=== PATIENT | female | born 1995 | race Caucasian/White ===

== ENCOUNTER 2017-01-04 18:48 | Emergency (ER) | payer OTHER, BC ==
[2017-01-04 18:58] VITALS: RESP 20; TEMP 98.4
[2017-01-04] MEDS ORDERED: NORMAL SALINE 10 ML SYRINGE FLUSH IVP PRN (19:05)
[2017-01-04] MEDS ORDERED: Sodium Chloride 0.9% 1,000 ML PRIMARY IV ONE (19:05)
[2017-01-04] MEDS ORDERED: ONDANSETRON 4 MG/2 ML VIAL IVP ONE (19:05)
[2017-01-04 19:35] LABS: BASOPHILS # (AUTO) 0.03 10*3/UL; BASOPHILS % (AUTO) 0.4 % (0-1); HEMOGLOBIN 13.5 g/dL (12.0-16.0); IMM GRAN % (AUTO) 0.1 % (0-5); IMM GRAN# (AUTO) 0.01 10*3/UL; LYMPHOCYTES # (AUTO) 1.06 10*3/uL
[2017-01-04 19:40] LABS: ASPARTATE AMINO TRANSFERASE 26 IU/L (8-39); BILIRUBIN,TOTAL 0.5 mg/dL (0.3-1.2); BLOOD UREA NITROGEN 13 mg/dL (7-22); BUN/CREATININE RATIO 18.57 (6-20); CALCIUM 8.8 mg/dL (8.7-10.7); CHLORIDE 104 meq/L (98-112); CREATININE 0.7 mg/dL (0.50-1.20); EST GLOMERULAR FILTRATION > 60 (>60 ml/min/1.73m(2)); GLUCOSE 72 mg/dL (78-110); POTASSIUM 3.4 meq/L (3.8-5.2); SODIUM 138 meq/L (135-145); TOTAL PROTEIN 6.8 g/dL (6.1-8.0)
[2017-01-04 19:41] LABS: BILIRUBIN,URINE NEGATIVE (NEG); CLARITY,URINE CLEAR (CLEAR); GLUCOSE, URINE (UA) NEGATIVE (NEG); LEUKOCYTE ESTERASE ,URINE NEGATIVE (NEG); LYMPHOCYTES % (AUTO) 15.2 % (10-50); MEAN CORPUSCULAR HEMOGLOBIN 29.3 PG (27-31); MEAN CORPUSCULAR HGB CONC 34.6 g/dL (33-37); MEAN PLATELET VOLUME 10.3 FL (7.4-12.2); MONOCYTES # (AUTO) 0.64 10*3/UL (0.3-0.8); MONOCYTES % (AUTO) 9.2 % (5-15); NEUTROPHILS # (AUTO) 5.15 10*3/UL; NEUTROPHILS % (AUTO) 74.1 % (50-80); NITRATE,URINE NEGATIVE (NEG); OCCULT BLOOD,URINE NEGATIVE (NEG); PH,URINE 5.5 (5.0-8.5); PLATELET MORPHOLOGY COMMENT NORMAL MORPHOLOGY (NORM); PROTEIN,URINE NEGATIVE (NEG); RDW COEFFICIENT OF VARIATION 13.4 % (11.5-14.5); WHITE BLOOD COUNT 6.96 10^3/uL (4.8-10.8)
[2017-01-04 19:45] LABS: URINE SAMPLE TYPE VOIDED SPECIMEN
[2017-01-04] MEDS ORDERED: Ondansetron ODT Tab 4 MG TAB PO SCH (20:30)
[2017-01-04] MEDS ORDERED: Ondansetron ODT Tab 4 MG TAB PO ONE (20:33)
--- NOTE | 2017-01-05 06:23 | PDOC ---
Nausea/Vomiting/Diarrhea HPI - General Chief Complaint: General Medical Stated Complaint: Nausea, intermittment migraines, 6 weeks Date Seen by Provider: 01/04/17 Time Seen by Provider: 18:55 Source: POSITIVE: Patient Exam Limitations: POSITIVE: No limitations Nurse's Notes Reviewed & Considered: Yes - History of Present Illness Initial Comments: The patient is a 21-year-old female. She states she is 6 weeks with her last menstrual cycle on 11/22/2016. She states that for the past 4 weeks she's had nausea. Occasional vomiting. No melena, hematochezia, hematemesis, dysuria, hematuria, fevers. Some mild upper abdominal cramping on occasion. She is 2 para 1 aborta 0. She states that she had preeclampsia with her first . No vaginal bleeding or discharge. Body Location Affected: REPORTS: Abdomen Timing: REPORTS: Intermittent Duration: >1 week (4 weeks) Severity: Moderate Quality: REPORTS: Cramping (Occasional mild upper abdominal cramping) Abdominal Pain Onset Location: REPORTS: Other (No real abdominal pain). DENIES : RUQ, LUQ, RLQ, LLQ, Epigastric, Periumbilical, Suprapubic, Generalized abdomen , Flank Abdominal Pain Radiation: DENIES: No radiation, RUQ, LUQ, RLQ, LLQ, Epigastric, Periumbilical, Flank, Groin, Scapula, Shoulder, Chest, Back, Other Context: DENIES: None, Activity, Bending, Coughing, Fall, Lifting, Near Fall, Rest, Sitting, Sleep, Standing, Turning, Emotional stress, Camping, Bad Food, Out of Country Travel, Other, Recent Surgery, Recent Trauma Modifying Factors: improves with: Vomiting Associated Symptoms: REPORTS: Vomiting, Mild Vomiting. DENIES: Frequent Vomiting, Bloody Emesis, Blood-Streaked Emesis, Bilious Emesis, Feculent Emesis , Diarrhea, Mild Diarrhea, Copious Diarrhea, Mucous Diarrhea, Bloody Diarrhea, Blood-Streaked Diarrhea, Watery Diarrhea, Abdominal Pain, Cramping, Aching, Burning, Diffuse Pain, Epigastric Pain, RUQ Pain, RLQ Pain, LUQ Pain, LLQ Pain, Suprapubic Pain, Periumbilical Pain, Other Similar Symptoms Previously: No Recent Care Received: REPORTS: Denies Any Prior Injuries Related to Current Complaint?: No - Patient Home Medications Home Medications: Home Medications Levonorgestrel [Mirena] 1 each IY ASDIR #1 unit 09/05/16 Norgestimate-Ethinyl Estradiol [Sprintec 28 Day Tablet] 1 tab PO DAILY #30 tab 10/10/16 Ondansetron Odt [Zofran ODT] 4 mg SL Q6H PRN #20 tablet 01/04/17 - Patient Allergies Allergies/Adverse Reactions: Allergies Allergy/AdvReac Type Severity Reaction Status Date / Time No Known Allergies Allergy Verified 01/04/17 18:50 Past Medical History - heen HEENT History: Other (please comment) Additional HEENT History: TONSILLECTOMY AND ADNOIDECTOMY Cardiovascular History: Denies History Respiratory History: Denies History Gastrointestinal History: Denies History Genitourinary History: Denies History Endocrine History: Denies History Musculoskeletal History: Denies History Prosthesis or Implant: No Neurological History: Denies History Blood Disorders: Denies History Psychiatric History: Denies History History of Sexually Transmitted Diseases: No Female Reproductive History: Denies History LMP: 2015 Obstetrical History: Denies History Cancer History: Denies History In Past Year Been Physically Harmed or Verbally Threatened: No History of MDRO: No History of Other Communicable Diseases: No Tobacco Use: Never Smoker Alcohol Use: None Substance Use Type: None Previous Surgical History: Yes Type / Date of Surgery: TONSILS/ADNOIDS Anesthesia Reactions: No Malignant Hyperthermia: No Significant Family History: Heart disease Past Medical History Reviewed: Reviewed - No Changes ROS - Limitations ROS Limitations: No Limitations Constitution: REPORTS: Denies Symptoms Cardiovascular: REPORTS: Denies Cardiac Symptoms Respiratory: REPORTS: Denies Resp Symptoms Neurological: REPORTS: Denies Neuro Symptoms Gastrointestinal: REPORTS: Nausea, Vomitting Endocrine: REPORTS: Denies Symptoms Musculoskeletal: REPORTS: Denies MS Symptoms Genitourinary: REPORTS: Denies Symptoms Eyes: REPORTS: Denies Symptoms ENT: REPORTS: Denies Symptoms Skin: REPORTS: Denies Skin Symptoms Lympathic: REPORTS: Denies Lympathic Symptoms Immunologic: POSITIVE: Denies Symptoms Psychiatric: POSITIVE: Denies Psych Symptoms Nausea/Vomiting/Diarrhea Exam - General Appearance General Appearance: POSITIVE: Alert, Cooperative, No Acute Distress, No Evidence of Trauma - HEENT HEENT: POSITIVE: Head Inspection Nml, Eyes Inspection Nml, Ears Inspection Nml, Nose Inspection Nml, Oral/Dental Inspect. Nml, Pharynx Inspect. Nml, PERRL, EOMI - Neck Neck: POSITIVE: Supple, Normal Inspection, Non Tender - Respiratory Respiratory: POSITIVE: No Respiratory Distress, Breath Sounds Normal, Chest Non- Tender - Cardiovascular Cardiovascular: POSITIVE: Regular Rate and Rhythm, Heart Sounds Normal, Equal Pulses, Strong Pulses Peripheral Pulses: Radial (R): 2+, Radial (L): 2+ - Chest Chest: POSITIVE: Non Tender - Abdomen Abdomen: Soft: (All Quadrants), Normal Bowel Sounds: (All Quadrants), Denies Tenderness: (All Quadrants), No Splenomegaly: (All Quadrants), No Hepatomegaly: (All Quadrants), No Guarding: (All Quadrants), No Rebound: (All Quadrants), No Palpable Pulse: (All Quadrants), No Palpabale Mass: (All Quadrants), No Distention: (All Quadrants), No Rigidity: (All Quadrants) - Back Back: POSITIVE: Normal Inspection - Skin Skin: POSITIVE: Intact, Normal For Race, Warm, Dry, No Rash - Extremities Extremity: Non-Tender: (All Extremities), Normal ROM: (All Extremities), Normal Inspection: (All Extremities) - Neurological / Psychological Neurological: POSITIVE: Oriented X3, roll up helper Normal As Tested, Motor Normal, Sensation Normal, 5, 6 N/V/D Progress - Results Reviewed by me Lab Results Reviewed: Yes Lab Results:: Laboratory Results 01/04/17 Range/Units 19:26 WBC 6.96 (4.8-10.8) 10^3/uL RBC 4.60 (4.20-5.40) 10^6/uL Hgb 13.5 (12.0-16.0) g/dL Hct 39.0 (37.0-47.0) % MCV 84.8 (81-99) FL MCH 29.3 (27-31) PG MCHC 34.6 (33-37) g/dL RDW Std Deviation 41.2 (39-50) fL RDW Coeff of [place] 13.4 (11.5-14.5) % Plt Count 261 (140-350) 10*3/uL MPV 10.3 (7.4-12.2) FL Immature Gran % (Auto) 0.1 (0-5) % Neut % (Auto) 74.1 (50-80) % Lymph % (Auto) 15.2 (10-50) % [place] % (Auto) 9.2 (5-15) % Eos % (Auto) 1.0 (0-8) % Baso % (Auto) 0.4 (0-1) % Immature Gran # (Auto) 0.01 10*3/UL Neut # (Auto) 5.15 10*3/UL Lymph # (Auto) 1.06 10*3/uL [place] # (Auto) 0.64 (0.3-0.8) 10*3/UL Eos # (Auto) 0.07 10*3/UL Baso # (Auto) 0.03 10*3/UL WBC Morphology Comment Normal morphology (NORM) Plt Morphology Comment Normal morphology (NORM) RBC Morph Comment Normal morphology (NORM) Sodium 138 (135-145) meq/L Potassium 3.4 L (3.8-5.2) meq/L Chloride 104 (98-112) meq/L Carbon Dioxide 23 (23-33) meq/L Anion Gap 11 (5-20) BUN 13 (7-22) mg/dL Creatinine 0.7 (0.50-1.20) mg/dL Estimated GFR > 60 (>60 ml/min/1.73m(2)) BUN/Creatinine Ratio 18.57 (6-20) Glucose 72 L (78-110) mg/dL Calculated Osmolality 284.0 (267-292) mOsm/kg Calcium 8.8 (8.7-10.7) mg/dL Total Bilirubin 0.5 (0.3-1.2) mg/dL AST 26 (8-39) IU/L ALT 34 (9-52) IU/L Alkaline Phosphatase 80 (50-259) IU/L Total Protein 6.8 (6.1-8.0) g/dL Albumin 4.1 (3.7-5.6) g/dL Globulin 2.6 (2.50-4.10) g/dL Albumin/Globulin Ratio 1.50 (1.3-2.0) mg/g HCG, Quant 80280 mIU/ML Ur Collection Type Voided specimen Urine Color Yellow Urine Clarity Clear (CLEAR) Urine pH 5.5 (5.0-8.5) Ur Specific [place] >=1.030 (1.005-1.030) U Specif Grav (Refrac) 1.030 Urine Protein Negative (NEG) mg/dl Urine Glucose (UA) Negative (NEG) mg/dL Urine Ketones Negative (NEG) Urine Occult Blood Negative (NEG) Urine Nitrate Negative (NEG) Urine Bilirubin Negative (NEG) Urine Urobilinogen 1.0 (0.2) EU/dL Ur Leukocyte Esterase Negative (NEG) Ur Culture Indicated? Culture not set Patient Care Time - Estimated PCT Patient Care Time (In Minutes): 25 Vital Signs - VS Reviewed Vital Signs Reviewed: Yes Discharge Clinical Impression: Nausea and vomiting during prior to 22 weeks gestation Discharge Disposition: Discharged to Home Condition: Stable Prescriptions / Orders: Ondansetron Odt [Zofran ODT] 4 mg SL Q6H PRN #20 tablet PRN Reason: Nausea Additional Instructions: Increase fluids. Zofran, one dissolved under tongue every 6 hours as necessary for nausea. Follow-up with your primary care provider and helper driver. Return here anytime if condition worsens. Follow Up With: MADDY HOWE [Primary Care Provider] - (Instructions as above. Follow-up with your primary care provider and helper driver. Return here anytime if condition worsens.)
== END 2017-01-04 20:27 | disposition home or self-care (01) ==
LOC: ER 18:48
DX: O21.0 Mild hyperemesis gravidarum (principal); Z3A.01 Less than 8 weeks gestation of pregnancy
CPT/HCPCS: 80053; 81003; 84702; 85025; 96361; 96374; 99282; 99283; J2405; J7030

== ENCOUNTER → 2017-01-16 | Outpatient (CLI) | payer BC, OTHER ==
[2017-01-16 11:59] LABS: BASOPHILS # (AUTO) 0.03 10*3/UL; BASOPHILS % (AUTO) 0.4 % (0-1); EOSINOPHILS % (AUTO) 0.6 % (0-8); HEMATOCRIT 39.3 % (37.0-47.0); HEMOGLOBIN 13.6 g/dL (12.0-16.0); IMM GRAN % (AUTO) 0.1 % (0-5); IMM GRAN# (AUTO) 0.01 10*3/UL; LYMPHOCYTES % (AUTO) 20.7 % (10-50); MEAN CORPUSCULAR HEMOGLOBIN 29.3 PG (27-31); MEAN CORPUSCULAR HGB CONC 34.6 g/dL (33-37); MEAN PLATELET VOLUME 10.5 FL (7.4-12.2); MONOCYTES # (AUTO) 0.57 10*3/UL (0.3-0.8); MONOCYTES % (AUTO) 7.9 % (5-15); NEUTROPHILS % (AUTO) 70.3 % (50-80); RDW COEFFICIENT OF VARIATION 13.4 % (11.5-14.5); RED BLOOD COUNT 4.64 10^6/uL (4.20-5.40); WHITE BLOOD COUNT 7.25 10^3/uL (4.8-10.8)
[2017-01-16 12:16] LABS: PLATELET MORPHOLOGY COMMENT NORMAL MORPHOLOGY (NORM)
[2017-01-16 12:40] LABS: PRENATAL QUESTION YES (Y)
[2017-01-16 13:29] LABS: HIV ANTIBODY NEGATIVE (N); HIV-1 P24 ANTIGEN NEGATIVE (N)
[2017-01-18 11:15] LABS: HEP B SURFACE AG Negative (Negative); RUBELLA IGG INDEX 0.8 (()); SYPHILIS IGG WITH REFLEX Negative (Negative)
== END ==
LOC: MOB LAB 10:52
PROVIDERS: ATTEND Student in an Organized Health Care Education/Training Program
DX: Z34.91 Encounter for supervision of normal pregnancy, unspecified, first trimester (principal)
CPT/HCPCS: 36415; 80081; 86900; 86901

== ENCOUNTER → 2017-01-19 | Outpatient (CLI) | payer BC, OTHER ==
--- NOTE | 2017-01-19 08:45 | DI ---
OBSTETRICAL ULTRASOUND, 01/19/2017 7:54 AM: Clinical History: Verify dates. Previous Exam: None at this facility for this . LMP: 11/22/2016. There is a single live IUP currently in unstable position. Amnionic fluid content is normal. The plac enta is probably anterior corpus and Grade 0. heart rate is 163 beats/minute and regular. Both ovaries are normal. The yolk sac is visualized. CRL measurement is 17 mm. This measurement correspond s to an EGA value of 8 weeks 2 days. The US EDC is 08/29/2017. EDC by LMP is also 08/29/2017. Readin. Single live fetus with unstable presentation. Amniotic fluid content is normal. The placenta prob ably will be anterior corpus. Grade is 0. 2. The composite EGA is 8 weeks 2 days with an ultrasound EDC of 08/29/2017. This also coincides wit h the EDC based on the patient's LMP of 11/22/2016.
== END ==
LOC: US 07:51
PROVIDERS: ATTEND Student in an Organized Health Care Education/Training Program
DX: Z36 Encounter for antenatal screening of mother (principal); Z34.91 Encounter for supervision of normal pregnancy, unspecified, first trimester
CPT/HCPCS: 76801

== ENCOUNTER → 2017-03-20 | Outpatient (CLI) | payer BC, OTHER | LOC: LAB 10:49 | PROVIDERS: ATTEND Student in an Organized Health Care Education/Training Program | DX: Z36 Encounter for antenatal screening of mother (principal); Z3A.16 16 weeks gestation of pregnancy | CPT/HCPCS: 87491; 87591 ==

== ENCOUNTER → 2017-04-14 | Outpatient (CLI) | payer BC, OTHER ==
--- NOTE | 2017-04-14 11:06 | DI ---
OBSTETRICAL ULTRASOUND, 04/14/2017 9:42 AM: Clinical History: Antepartum screening. Previous Exam: 01/19/2017. ADJUSTED DATE FROM EARLY OBUS: 11/22/2016. There is a single live IUP currently in vertex presentation. Amnionic fluid content is normal. activity is observed as follows: cardiac, extremity, and respiratory. The placenta is anterior corpus and Grade 1. heart rate is 126 beats/minute and regular. There is a 3 vessel cord. The RVOT, L VOT and 4 chamber heart view are normal. The aortic arch and descending aorta are normal. Views of th e spine, face, and kidneys are unremarkable. BPD, HC, AC, and FL measurements are 45 mm, 175 mm , 167 mm, and 33 mm, respectively. These measurements correspond to EGA values of 19 weeks 5 days, 20 weeks 1 day, 21 weeks 6 days and 20 weeks 3 days, respectively. Composite EGA is 20 weeks 4 days The US EDC is 08/28/2017. EDC by adjusted LMP is 08/29/2017. Readin. Single live fetus with unstable presentation and normal amniotic fluid content. Placenta is anter ior corpus and grade 1. 2. The composite EGA is 20 weeks 4 days with an ultrasound EDC of 08/28/2017. EDC by adjusted LMP of 11/22/2016, is 08/29/2017.
== END ==
LOC: US 09:37
PROVIDERS: ATTEND Student in an Organized Health Care Education/Training Program
DX: Z36 Encounter for antenatal screening of mother (principal); Z3A.20 20 weeks gestation of pregnancy
CPT/HCPCS: 76805

== ENCOUNTER → 2017-06-06 | Outpatient (CLI) | payer BC, OTHER ==
[2017-06-06 11:16] LABS: RED BLOOD COUNT 3.97 10^6/uL (4.20-5.40)
[2017-06-06 11:17] LABS: HEMATOCRIT 36.1 % (37.0-47.0); MEAN CORPUSCULAR HEMOGLOBIN 30.2 PG (27-31); MEAN CORPUSCULAR HGB CONC 33.2 g/dL (33-37); MEAN CORPUSCULAR VOLUME 90.9 FL (81-99); MEAN PLATELET VOLUME 10.8 FL (7.4-12.2)
== END ==
LOC: LAB 09:01
PROVIDERS: ATTEND Obstetrics & Gynecology
DX: Z36 Encounter for antenatal screening of mother (principal); Z3A.28 28 weeks gestation of pregnancy
CPT/HCPCS: 36415; 82950; 85027

== ENCOUNTER 2017-07-01 21:30 | Outpatient (CLI) | payer BC, OTHER ==
[~2017-07-01 21:30] MED LIST: NORMAL SALINE 10 ML SYRINGE FLUSH IVP PRN
[2017-07-01 21:36] VITALS: RESP 20; TEMP 97.8
--- NOTE | 2017-07-04 14:49 | PDOC(PROG) ---
Intake - - Reason for Visit/Chief Complaint: Cramping, Other Additional Reason(s) for Visit: bloody mucous Admitted From: Home - Estimated Due Date: 08/29/17 Gestational Age in Weeks and Days: 32 Weeks and 0 Days : 2 Para: 1 Term Births: 1 Births: 0 Number of Abortions (Spont./Elective): 0 Living Children: 1 - Labs Blood Type and Rh: O+ Group B Strep: Unknown Maternal - Vital Signs Last Taken Vital Signs: Vital Signs - Last Taken Temperature 97.8 F 07/01/17 21:15 Pulse Rate 84 07/01/17 21:15 Respiratory Rate 20 07/01/17 21:15 Blood Pressure 121/62 07/01/17 21:15 Pulse Ox 99 07/01/17 21:15 - Vaginal Discharge Vaginal Bleeding Amount: Spotting Results - Bedside Testing Bedside Urine Ketone: Negative Bedside Urine Leukocytes Esterase: Negative Bedside Urine Nitrite: Negative Bedside Urine Occult Blood: Negative Bedside Urine Protein: Trace Bedside Specific [place]: 1.030 Assessment and Plan - Assessment / Plan Additional Assessment/Plan Details: No signs of PTL after hydration. Reassuring maternal and evaluation. Discharge to home in good condition. - Time Time Spent With Patient: Less Than 15 Minutes
--- NOTE | 2017-07-05 20:42 | PDOC(PROG) ---
Intake - - Reason for Visit/Chief Complaint: Cramping, Other Additional Reason(s) for Visit: bloody mucous Admitted From: Home - Estimated Due Date: 08/29/17 Gestational Age in Weeks and Days: 32 Weeks and 1 Days : 2 Para: 1 Term Births: 1 Births: 0 Number of Abortions (Spont./Elective): 0 Living Children: 1 - Labs Blood Type and Rh: O+ Group B Strep: Unknown Maternal - Vital Signs Last Taken Vital Signs: Vital Signs - Last Taken Temperature 97.8 F 07/01/17 21:15 Pulse Rate 84 07/01/17 21:15 Respiratory Rate 20 07/01/17 21:15 Blood Pressure 121/62 07/01/17 21:15 Pulse Ox 99 07/01/17 21:15 - Vaginal Discharge Vaginal Bleeding Amount: Spotting Results - Bedside Testing Bedside Urine Ketone: Negative Bedside Urine Leukocytes Esterase: Negative Bedside Urine Nitrite: Negative Bedside Urine Occult Blood: Negative Bedside Urine Protein: Trace Bedside Specific [place]: 1.030 Assessment and Plan - Assessment / Plan Additional Assessment/Plan Details: No signs of PTL. Reassuring maternal and evaluation. Discharge to home in good condition. - Time Time Spent With Patient: Less Than 15 Minutes
== END 2017-07-01 22:10 | disposition home or self-care (01) ==
LOC: OBOP 21:30
PROVIDERS: ATTEND Student in an Organized Health Care Education/Training Program
DX: O26.893 Other specified pregnancy related conditions, third trimester (principal); R25.2 Cramp and spasm; Z3A.31 31 weeks gestation of pregnancy
CPT/HCPCS: 59025; 81003; 99211

== ENCOUNTER 2017-08-25 05:17 | Inpatient (IN) ==
[2017-08-25] MEDS ORDERED: OXYTOCIN 10 UNIT/1 ML IM PRN (05:20)
[2017-08-25] MEDS ORDERED: NALOXONE 0.4 MG/1 ML VIAL IVP PRN (05:20)
[2017-08-25] MEDS ORDERED: METHYLERGONOVINE MALEATE 0.2 MG/1 ML VIAL IM PRN (05:20)
[2017-08-25] MEDS ORDERED: Carboprost Inj 250 MCG/ML AMP IM PRN (05:20)
[2017-08-25] MEDS ORDERED: Naloxone Inj 0.01 MG in Normal Saline Flush 1 ML IVP PRN (05:20)
[2017-08-25] MEDS ORDERED: Metoclopramide Inj 10 MG/2 ML VIAL IV PRN (05:20)
[2017-08-25] MEDS ORDERED: BUTORPHANOL TARTRATE 2 MG/1 ML VIAL IVP PRN (05:20)
[2017-08-25] MEDS ORDERED: CefOXitin Inj 2 GM in Sodium Chloride 0.9% 100 ML IV PRN (05:20)
[2017-08-25] MEDS ORDERED: Famotidine Inj 20 MG in Normal Saline Flush 10 ML IVP PRN ×4 (05:20)
[2017-08-25] MEDS ORDERED: Lidocaine 1% 10 MG/ML - 20 ML VIAL SUBCUT PRN (05:20)
[2017-08-25] MEDS ORDERED: CITRIC ACID/SODIUM CITRATE 30 ML CUP PO PRN (05:20)
[2017-08-25] MEDS ORDERED: LIDOCAINE W/ SODIUM BICARB 0.5 ML SYR SUBD PRN (05:20)
[2017-08-25] MEDS ORDERED: Nalbuphine Inj 20 MG/ML Ampule IVP PRN ×2 (05:20→17:34)
[2017-08-25] MEDS ORDERED: ePHEDrine Inj 5 MG in Normal Saline Flush 1 ML IVP PRN (05:20)
[2017-08-25] MEDS ORDERED: NORMAL SALINE 10 ML SYRINGE FLUSH IVP PRN ×2 (05:20→17:34)
[2017-08-25] MEDS ORDERED: TERBUTALINE SULFATE 1 MG/1 ML SDV SUBCUT PRN (05:20)
[2017-08-25] MEDS ORDERED: MISOPROSTOL 200 MCG TABLET RECTAL PRN (05:20)
[2017-08-25] MEDS ORDERED: Phenylephrine Inj 50 MCG in Normal Saline Flush 0.5 ML IVP PRN (05:20)
[2017-08-25] MEDS ORDERED: diphenhydrAMINE 50 MG/1 ML VIAL IVP PRN ×2 (05:20→17:34)
[2017-08-25] MEDS ORDERED: LIDOCAINE HCL 2 % 10 ML JELLY URO-JECT TOPICAL PRN ×2 (05:20→17:34)
[2017-08-25] MEDS ORDERED: ONDANSETRON 4 MG/2 ML VIAL IVP PRN ×2 (05:20→17:34)
[2017-08-25] MEDS ORDERED: CALCIUM CARBONATE 500 MG (TUMS) CHEWABLE TABLET PO PRN ×2 (05:20→17:34)
[2017-08-25] MEDS ORDERED: Zolpidem Tab 5 MG TAB PO PRN (05:23)
[2017-08-25] MEDS ORDERED: Oxytocin 20 Units + LR 20 UNIT/1,000 ML BAG IV SCH ×3 (05:30→17:34)
[2017-08-25 06:45] LABS: Hematocrit [HCT] 35.4 % (37.0-47.0); Hemoglobin [HGB] 11.7 g/dL (12.0-16.0); MEAN CORPUSCULAR HEMOGLOBIN 28.7 PG (27-31); MEAN CORPUSCULAR HGB CONC 33.1 g/dL (33-37); MEAN PLATELET VOLUME 10.2 FL (7.4-12.2); RED BLOOD COUNT 4.07 10^6/uL (4.20-5.40)
[2017-08-25] MEDS: Lactated Ringers-OB Dept 1,000 ML PRIMARY IV SCH ×2 (07:00→13:38)
[2017-08-25] MEDS: fentaNYL Inj 100 MCG/2 ML VIAL IV PRN ×4 (08:00→15:51)
--- NOTE | 2017-08-25 08:28 | OB.PROGRES ---
Interval History: 21 yo at 39 3/7 weeks gestation by [address] [place] [id number]/s presents for elective IOL. essentially uncomplicated - although she did have a fall approx 4 weeks ago and has had some low back pain and contractions since then. She did not get much sleep last night, just anxious about the delivery. Objective - Cervical Exam Cervical Exam: /-1, vertex [place]: q3 mins Heart Rate: baseline 130, mod variability, accels, no decels Heart Rate Interpretation Category: Category I - Labs CBC and BMP: 08/25/17 06:40 - Vital Signs Last Taken Vital Signs: Vital Signs - Last Taken Temperature 98.2 F 08/25/17 05:26 Pulse Rate 95 08/25/17 05:26 Respiratory Rate 20 08/25/17 05:26 Blood Pressure 113/62 08/25/17 05:26 Pulse Ox 90 08/25/17 07:00 Assessment and Plan - Patient Problems (1) Elective induction of labor planned Current Visit: Yes Status: Acute Support Text: 21 yo at 39 3/7, admitted for elective IOL Cervix quite favorable already. Pitocin was started about an hour ago, at 3 mU currently Patient is hoping to do this without an epidural so will defer AROM for now, she did have fentanyl for pain control and got lightheaded RH positive, rubella immune Continue close observation
--- NOTE | 2017-08-25 16:50 | OB.DEL.SUM ---
Delivery Note Delivery Summary: 21 yo G2 now P2002 admitted early this morning for elective IOL at 39 3/7 weeks gestation. Patient was started on pitocin, around noon AROM was accomplished. Clear fluid. She progressed to complete by about 1600. After a few pushes she delivered a TAGA male infant at 1607. was delivered in YANDEL position over an intact perineum without anesthesia. No nuchal cord was noted. The anterior shoulder was delivered and then the posterior shoulder with a compound hand. Infant was handed off to the awaiting nursery nurse. Cord was doubly clamped and cut by the patient's sister Blaise. He was stimulated. Cord blood and cord gases were collected. The pitocin was started and her placenta delivered spontaneously, intact, with a 3-vessel cord at 1611. Her perineum and vagina were inspected and notable only for a hemostatic periurethral laceration. No further lacerations, cervix intact. EBL 300 cc. Mom and baby tolerated delivery well. Apgars 8, 9. Cord gases: pH 7.362, pCO2 34, HCO3 19.3, BE -6 Lap/sponge and needle counts were correct. - Patient Problems (1) Elective induction of labor planned Current Visit: Yes Status: Acute (2) Vaginal delivery Current Visit: Yes Status: Acute Code(s): O80 - Encounter for full-term uncomplicated delivery
[2017-08-25] MEDS ORDERED: LANOLIN HPA 40 GM TUBE TOPICAL PRN (17:34)
[2017-08-25] MEDS ORDERED: GLYCERIN/WITCH HAZEL 1 BOX TOPICAL PRN (17:34)
[2017-08-25] MEDS ORDERED: ACETAMINOPHEN 325 MG TABLET PO PRN (17:34)
[2017-08-25] MEDS ORDERED: Ondansetron ODT Tab 4 MG TAB PO PRN (17:34)
[2017-08-25] MEDS ORDERED: IBUPROFEN 800 MG TABLET PO PRN (17:34)
[2017-08-25] MEDS ORDERED: BENZOCAINE/MENTHOL SPRAY 56 GM BOTTLE TOPICAL PRN (17:34)
[2017-08-25] MEDS ORDERED: diphenhydrAMINE 25 MG CAPSULE PO PRN (17:34)
[2017-08-25] MEDS: DOCUSATE 100 MG CAPSULE PO SCH (21:45)
[2017-08-26 05:41] LABS: Hematocrit [HCT] 33.7 % (37.0-47.0); Hemoglobin [HGB] 10.8 g/dL (12.0-16.0); MEAN CORPUSCULAR HEMOGLOBIN 28.3 PG (27-31); MEAN CORPUSCULAR VOLUME 88.2 FL (81-99); RED BLOOD COUNT 3.82 10^6/uL (4.20-5.40)
[2017-08-26 08:42] VITALS: BP 117/62; RESP 18; TEMP 98; O2SAT 98
[2017-08-26] MEDS: DOCUSATE 100 MG CAPSULE PO SCH (08:43)
--- NOTE | 2017-08-26 08:44 | DCSUMMARY ---
Hospitalization Summary Admit Date: 08/25/17 Discharge Date: 08/26/17 Primary Diagnosis:: s/p VD Delivery Type: Vaginal Hospital Course: 21 yo G2 now P2 admitted at 39 3/7 weeks gestation for elective IOL. Induction was accomplished with pitocin and AROM about 7 hours after admission. She progressed quickly after that and delivered a TAGA male infant weighing 8 lbs 2 oz, apgars 8,9. She only had a hemostatic periurethral laceration that did not require repair. Patient only received a couple of doses of fentanyl for anesthesia. She did well / Postop Complications: none apparent Complications: none apparent Exam - Vitals Vital Signs: Vital Signs Temperature 98 F Temperature Source Oral Pulse Rate [Pulse Oximeter] 86 Pulse Rate 84 Respiratory Rate 16 Blood Pressure [Right Arm] 91/41 Blood Pressure 108/56 Pulse Ox 97 Oxygen Delivery Method Room Air Height 5 ft 7 in Weight 221 lb - General General Appearance: No Acute Distress - Head Head Exam: Normal Inspection - Eye Eye Exam: POSITIVE: Normal Appearance, EOMI - Respiratory Respiratory Exam: POSITIVE: Clear to Auscultation - Bilaterally, Breathing Non Labored - Cardiovascular Cardiovascular Exam: POSITIVE: RRR Additional Cardiovascular Details: systolic flow murmur - GI/Abdominal GI/Abdominal Exam: POSITIVE: Normal Bowel Sounds, Non Tender Additional GI/Abdominal Exam Details: uterus firm, U-1 - External Exam: POSITIVE: Deferred Exam: POSITIVE: Deferred - Extremities Extremities Exam: POSITIVE: No Edema Present, Negative Lia's sign. NEGATIVE: Calf Tenderness - Psychiatric Psychiatric Exam: POSITIVE: Normal Affect, Normal Mood Patient Problems - Patient Problem List (1) Elective induction of labor planned Current Visit: Yes Status: Acute Category: Medical (2) Vaginal delivery Current Visit: Yes Status: Acute Code(s): O80 - Encounter for full-term uncomplicated delivery Support Text: PPD 1, doing very well. Pain controlled. Will give DMPA prior to discharge for contraception. Bottle feeding. F/u with me in 6 weeks, sooner for any concerns. D/c to home today. Rx for colace sent to pharmacy, to use tylenol/ibuprofen for pain. Category: Medical
[2017-08-26] MEDS ORDERED: MEDROXYPROGESTERONE IM ONE (09:00)
[2017-08-26] MEDS ORDERED: Prenatal Multivitamin Tab 1 TAB TAB PO SCH (09:00)
== END 2017-08-26 16:55 | disposition home or self-care (01) | DRG 775 ==
LOC: OBIP 05:20
PROVIDERS: ADMIT Student in an Organized Health Care Education/Training Program; ATTEND Student in an Organized Health Care Education/Training Program